=== PATIENT | female | born 1960 | race Caucasian/White ===

== ENCOUNTER 2016-10-28 18:10 | Emergency (ER) | payer OTHER ==
[~2016-10-28] VITALS: Ht 165.1 cm; Wt 76.2 kg
[~2016-10-28 18:10] MED LIST: ATENOLOL25 MG PO; CELEXA20 MG PO; CIPRO500 MG PO; CLEOCIN150 MG PO; CLINDAMYCIN HC300 MG PO; FLEXERIL5 MG PO; HYDROCODONE BIT1 T11 PO; LOMOTIL 0.025 M1 TA1 PO; Levoxyl0.137 MG PO; NAPROSYN500 MG PO; NORCO 5-325 TA1 EACH PO; PREDNISONE20 MG PO; TRAMADOL HCL50 MG PO; VICODIN 5/500 505 MG PO; ZOFRAN ODT4 MG SL
== END 2016-10-28 20:23 | disposition home or self-care (01) ==
LOC: ED 18:10
DX: R51 Headache (principal); R03.0 Elevated blood-pressure reading, without diagnosis of hypertension; Z79.899 Other long term (current) drug therapy

== ENCOUNTER → 2017-01-08 | Outpatient (CLI) | payer OTHER ==
[2017-01-08 09:51] LABS: BASO # 0.1 10*3/uL (0.0-0.1); BASO % 0.8 % (0.0-1.0); EOS # 0.7 10*3/uL (0.0-0.4); EOS % 5.6 % (1.0-4.0); HEMOGLOBIN 15.8 g/dl (12.0-16.0); LYMPH # 3.1 10*3/uL (1.3-4.4); LYMPH % 26.5 % (27.0-41.0); MEAN CELL VOLUME 94.7 fl (81.0-99.0); MEAN CORPUSCULAR HGB 33.3 pg (27.0-31.0); MEAN CORPUSCULAR HGB CONC 35.1 g/dl (33.0-37.0); MEAN PLATELET VOLUME 10.1 fl (9.6-12.3); MONO # 1.2 10*3/uL (0.1-1.0); MONO % 10.3 % (3.0-9.0); NEUT # 6.6 10*3/uL (2.3-7.9); NEUT % 56.1 % (47.0-73.0); PLATELET COUNT AUTOMATED 258 10*3/uL (130-400); RED BLOOD COUNT 4.75 10*6/uL (4.10-5.10); WHITE BLOOD COUNT 11.7 10*3/uL (4.8-10.8)
== END | disposition home or self-care (01) ==
LOC: LAB 03:22
PROVIDERS: Internal Medicine Hematology & Oncology
DX: D72.1 Eosinophilia (principal)

== ENCOUNTER → 2017-01-31 | Outpatient (CLI) | payer OTHER ==
[2017-01-31 09:40] LABS: BASO # 0.1 10*3/uL (0.0-0.1); BASO % 1.2 % (0.0-1.0); EOS # 0.8 10*3/uL (0.0-0.4); EOS % 6.7 % (1.0-4.0); HEMATOCRIT 42.2 % (37.0-47.0); HEMOGLOBIN 14.8 g/dl (12.0-16.0); LYMPH # 2.6 10*3/uL (1.3-4.4); LYMPH % 23.1 % (27.0-41.0); MEAN CELL VOLUME 92.5 fl (81.0-99.0); MEAN CORPUSCULAR HGB 32.5 pg (27.0-31.0); MEAN CORPUSCULAR HGB CONC 35.1 g/dl (33.0-37.0); MEAN PLATELET VOLUME 10.5 fl (9.6-12.3); MONO # 0.9 10*3/uL (0.1-1.0); MONO % 7.9 % (3.0-9.0); NEUT # 6.8 10*3/uL (2.3-7.9); NEUT % 60.3 % (47.0-73.0); PLATELET COUNT AUTOMATED 227 10*3/uL (130-400); RED BLOOD COUNT 4.56 10*6/uL (4.10-5.10); RED CELL DISTRI WIDTH 12.3 % (0-14.5); WHITE BLOOD COUNT 11.2 10*3/uL (4.8-10.8)
[2017-02-01 17:11] LABS: LEUKOCYTE ALK PHOSPHATASE 77 (25-130)
== END | disposition home or self-care (01) ==
LOC: LAB 03:56
PROVIDERS: Internal Medicine Hematology & Oncology
DX: D72.828 Other elevated white blood cell count (principal)

== ENCOUNTER → 2019-04-16 | Outpatient (CLI) | payer MEDICARE, MEDICAID ==
[~2019-04-16] MED LIST changes: +ASPIRIN81 M1 PO; +ATENOLOL-CHLOR1 EAC1 PO; +EMERGEN-C 500500 MG PO; +LEVOTHYROXINE125 MCG PO; +MULTIVITAMINS1 EAC5 PO; +SM COD LIVER O1 EACH PO
[2019-04-16 10:40] LABS: HEMATOCRIT 45.4 % (37.0-47.0); HEMOGLOBIN 14.8 g/dl (12.0-16.0); MEAN CORPUSCULAR HGB 30.3 pg (27.0-31.0); MEAN CORPUSCULAR HGB CONC 32.6 g/dl (33.0-37.0); MEAN PLATELET VOLUME 10.4 fl (9.6-12.3); RED BLOOD COUNT 4.88 10*6/uL (4.10-5.10); RED CELL DISTRI WIDTH 13.2 % (0-14.5)
[2019-04-16 11:14] LABS: ALBUMIN 3.3 gm/dl (3.1-4.5); ALKALINE PHOSPHATASE 129 U/L (45-117); BUN 16 mg/dl (7-24); CHLORIDE 105 mmol/L (98-107); CREATININE 0.93 mg/dL (0.55-1.02); POTASSIUM 4.3 mmol/L (3.5-5.1); SGOT/AST 7 IU/L (3-35); SGPT/ALT 13 U/L (12-78); SODIUM 140 mmol/L (136-145); TOTAL PROTEIN 6.9 gm/dL (6.4-8.2)
[2019-04-16 11:43] LABS: FREE T4 1.31 ng/dl (0.76-1.46)
== END | disposition home or self-care (01) ==
LOC: LAB 01:10
PROVIDERS: Physician Assistant
DX: R63.4 Abnormal weight loss (principal); E03.9 Hypothyroidism, unspecified; I10 Essential (primary) hypertension

== ENCOUNTER → 2019-04-17 | Outpatient (CLI) | payer MEDICARE, MEDICAID | END | disposition home or self-care (01) | LOC: CT 00:37 | DX: J43.9 Emphysema, unspecified (principal); K57.30 Diverticulosis of large intestine without perforation or abscess without bleeding; I10 Essential (primary) hypertension; F17.200 Nicotine dependence, unspecified, uncomplicated; R63.4 Abnormal weight loss; R22.0 Localized swelling, mass and lump, head; Z90.49 Acquired absence of other specified parts of digestive tract ==

== ENCOUNTER → 2019-08-07 | Outpatient (CLI) | payer OTHER, MEDICAID | END | disposition home or self-care (01) | LOC: CT 05:06 | DX: J43.9 Emphysema, unspecified (principal); R91.8 Other nonspecific abnormal finding of lung field ==

== ENCOUNTER 2020-01-29 15:48 | Inpatient (IN) | payer OTHER, MEDICAID ==
[2020-01-29] VITALS (10 sets, daily range): BP systolic 171–225; BP diastolic 71–110
[~2020-01-29] VITALS: Ht 163 cm; Wt 65.8 kg
[2020-01-29 16:40] LABS: HEMATOCRIT 48.2 % (37.0-47.0); MEAN CELL VOLUME 93.6 fl (81.0-99.0); MEAN CORPUSCULAR HGB 30.7 pg (27.0-31.0); MEAN CORPUSCULAR HGB CONC 32.8 g/dl (33.0-37.0); MEAN PLATELET VOLUME 10.4 fl (9.6-12.3); PLATELET COUNT AUTOMATED 239 10*3/uL (130-400); RED BLOOD COUNT 5.15 10*6/uL (4.10-5.10); RED CELL DISTRI WIDTH 12.4 % (0-14.5); WHITE BLOOD COUNT 12.1 10*3/uL (4.8-10.8)
[2020-01-29 16:51] LABS: ACT PARTIAL THROMBO TIME 25.5 SECONDS (20.0-32.1); INTERNATIONAL NORM RATIO 0.9 (2.0-3.5)
[2020-01-29 16:57] LABS: ALBUMIN 3.9 gm/dl (3.1-4.5); ALKALINE PHOSPHATASE 113 U/L (45-117); BUN 16 mg/dl (7-24); CHLORIDE 103 mmol/L (98-107); CREATININE 1.02 mg/dL (0.55-1.02); LIPASE 210 U/L (73-393); POTASSIUM 3.7 mmol/L (3.5-5.1); SGOT/AST 10 IU/L (3-35); SGPT/ALT 15 U/L (12-78); SODIUM 139 mmol/L (136-145); TOTAL PROTEIN 7.6 gm/dL (6.4-8.2)
[2020-01-29 16:58] LABS: TROPONIN I < 0.015 ng/ml (<0.045)
[2020-01-29 17:04] LABS: BASOPHILS 1 % (0-1); PLATELET SUFFICIENCY NORMAL (NORMAL); TOTAL CELLS COUNTED 100 #CELLS
[2020-01-29 17:07] LABS: ATYPICAL LYMPHS 1 % (0-0)
[2020-01-29 17:32] LABS: BILIRUBIN Negative (Negative); BLOOD Negative (Negative); CLARITY Clear (Clear); COLOR Yellow (Yellow); GLUCOSE Negative (Negative); KETONE Negative (Negative); LEUKO ESTERASE Negative (Negative); NITRITE Negative (Negative); SPECIFIC GRAVITY <= 1.005 (1.001-1.030); UROBILINOGEN 0.2 E.U./dl (0.0-1.0)
[2020-01-29 17:41] LABS: EPITHELIAL CELLS 0-2; WBC 0-2 wbc/hpf (0-5)
[2020-01-29] MEDS ORDERED: DALIRESP250 MCG PO (21:14)
[2020-01-29] MEDS ORDERED: 'XANAX1 MG PO (21:14)
[2020-01-29] MEDS ORDERED: BUSPIRONE HCL10 MG PO (21:16)
[2020-01-29] MEDS ORDERED: LEVOTHYROXINE112 MCG PO (21:17)
[2020-01-29] MEDS ORDERED: BREO ELLIPTA 11 EACH INH (21:18)
[2020-01-29] MEDS ORDERED: INCRUSE ELLI62.5 MCG INH (21:18)
[2020-01-29] MEDS ORDERED: ATENOLOL50 M1 PO (21:19)
[2020-01-29] MEDS ORDERED: OMEPRAZOLE40 MG PO (21:19)
[2020-01-30] VITALS: BP 168/94
[2020-01-30 06:21] LABS: BASO # 0.1 10*3/uL (0.0-0.1); BASO % 0.5 % (0.0-1.0); EOS % 0.1 % (1.0-4.0); HEMATOCRIT 52.1 % (37.0-47.0); LYMPH # 1.6 10*3/uL (1.3-4.4); LYMPH % 12.2 % (27.0-41.0); MEAN CORPUSCULAR HGB CONC 32.6 g/dl (33.0-37.0); MEAN PLATELET VOLUME 10.8 fl (9.6-12.3); MONO # 0.7 10*3/uL (0.1-1.0); MONO % 5.6 % (3.0-9.0); NEUT # 10.5 10*3/uL (2.3-7.9); NEUT % 81.1 % (47.0-73.0); PLATELET COUNT AUTOMATED 246 10*3/uL (130-400); RED BLOOD COUNT 5.66 10*6/uL (4.10-5.10); RED CELL DISTRI WIDTH 12.6 % (0-14.5); WHITE BLOOD COUNT 12.9 10*3/uL (4.8-10.8)
[2020-01-30 06:48] LABS: ALBUMIN 4.1 gm/dl (3.1-4.5); BUN 16 mg/dl (7-24); CHLORIDE 104 mmol/L (98-107); SGOT/AST 16 IU/L (3-35); SGPT/ALT 16 U/L (12-78); SODIUM 140 mmol/L (136-145)
[2020-01-30 06:50] LABS: ALKALINE PHOSPHATASE 124 U/L (45-117); CREATININE 1.01 mg/dL (0.55-1.02); TOTAL PROTEIN 8.2 gm/dL (6.4-8.2)
[2020-01-30 06:51] LABS: POTASSIUM 4.7 mmol/L (3.5-5.1)
[2020-01-30 08:00] VITALS: BP 182/92
[2020-01-30 12:00] VITALS: BP 110/83
[2020-01-30 16:00] VITALS: BP 116/80
[2020-01-30 20:00] VITALS: BP 150/74
[2020-01-31] VITALS: BP 159/75
[2020-01-31 08:00] VITALS: BP 135/77
[2020-01-31 10:16] LABS: BASO # 0.1 10*3/uL (0.0-0.1); BASO % 1.1 % (0.0-1.0); EOS # 0.6 10*3/uL (0.0-0.4); EOS % 5.2 % (1.0-4.0); HEMATOCRIT 47.1 % (37.0-47.0); LYMPH # 3.5 10*3/uL (1.3-4.4); LYMPH % 30.4 % (27.0-41.0); MEAN CELL VOLUME 92.9 fl (81.0-99.0); MEAN CORPUSCULAR HGB 30.4 pg (27.0-31.0); MEAN CORPUSCULAR HGB CONC 32.7 g/dl (33.0-37.0); MEAN PLATELET VOLUME 10.5 fl (9.6-12.3); MONO # 1.1 10*3/uL (0.1-1.0); MONO % 9.3 % (3.0-9.0); NEUT # 6.2 10*3/uL (2.3-7.9); NEUT % 53.7 % (47.0-73.0); PLATELET COUNT AUTOMATED 212 10*3/uL (130-400); RED BLOOD COUNT 5.07 10*6/uL (4.10-5.10); RED CELL DISTRI WIDTH 12.6 % (0-14.5); WHITE BLOOD COUNT 11.5 10*3/uL (4.8-10.8)
[2020-01-31] MEDS ORDERED: AMLODIPINE BESYL5 MG PO (11:54)
[2020-01-31 12:00] VITALS: BP 132/86
== END 2020-01-31 14:57 | disposition home or self-care (01) | DRG 305 ==
LOC: ED 15:48 → EDHOLD 19:32 → 4E 19:32
PROVIDERS: Internal Medicine; Nurse Practitioner Family; ADMIT Family Medicine; ATTEND Family Medicine
DX: I16.1 Hypertensive emergency (principal); R65.10 Systemic inflammatory response syndrome (SIRS) of non-infectious origin without acute organ dysfunction; E87.2 Acidosis; B37.0 Candidal stomatitis; J44.9 Chronic obstructive pulmonary disease, unspecified; F17.210 Nicotine dependence, cigarettes, uncomplicated; E03.9 Hypothyroidism, unspecified; I10 Essential (primary) hypertension; F41.9 Anxiety disorder, unspecified; N32.81 Overactive bladder; E05.00 Thyrotoxicosis with diffuse goiter without thyrotoxic crisis or storm; D75.1 Secondary polycythemia; Z71.6 Tobacco abuse counseling; Z90.49 Acquired absence of other specified parts of digestive tract; Z98.51 Tubal ligation status; Z82.3 Family history of stroke; Z80.1 Family history of malignant neoplasm of trachea, bronchus and lung; Z82.49 Family history of ischemic heart disease and other diseases of the circulatory system; Z79.82 Long term (current) use of aspirin; Z79.899 Other long term (current) drug therapy

== ENCOUNTER 2020-02-24 15:50 | Emergency (ER) | payer OTHER, MEDICAID ==
[~2020-02-24] VITALS: Wt 67.1 kg
[~2020-02-24 15:50] MED LIST changes: +'XANAX1 MG PO; +AMLODIPINE BESYL5 MG PO; +ATENOLOL50 M1 PO; +BREO ELLIPTA 11 EACH INH; +BUSPIRONE HCL10 MG PO; +DALIRESP250 MCG PO; +INCRUSE ELLI62.5 MCG INH; +LEVOTHYROXINE112 MCG PO; +OMEPRAZOLE40 MG PO
[2020-02-24 16:37] LABS: HEMATOCRIT 47.3 % (37.0-47.0); MEAN CELL VOLUME 91.8 fl (81.0-99.0); MEAN CORPUSCULAR HGB 30.9 pg (27.0-31.0); MEAN CORPUSCULAR HGB CONC 33.6 g/dl (33.0-37.0); MEAN PLATELET VOLUME 10.8 fl (9.6-12.3); PLATELET COUNT AUTOMATED 259 10*3/uL (130-400); RED BLOOD COUNT 5.15 10*6/uL (4.10-5.10); RED CELL DISTRI WIDTH 12.5 % (0-14.5); WHITE BLOOD COUNT 14.2 10*3/uL (4.8-10.8)
[2020-02-24 16:38] LABS: BILIRUBIN Negative (Negative); BLOOD Negative (Negative); CLARITY Clear (Clear); COLOR Yellow (Yellow); GLUCOSE Negative (Negative); KETONE Negative (Negative); LEUKO ESTERASE Negative (Negative); NITRITE Negative (Negative)
[2020-02-24 16:53] LABS: ALBUMIN 4.2 gm/dl (3.1-4.5); ALKALINE PHOSPHATASE 125 U/L (45-117); BUN 15 mg/dl (7-24); CHLORIDE 106 mmol/L (98-107); CREATININE 0.83 mg/dL (0.55-1.02); POTASSIUM 3.7 mmol/L (3.5-5.1); SGOT/AST 15 IU/L (3-35); SGPT/ALT 22 U/L (12-78); SODIUM 141 mmol/L (136-145); TOTAL PROTEIN 7.7 gm/dL (6.4-8.2)
[2020-02-24 16:55] LABS: BACTERIA TRACE; MUCOUS 1+
[2020-02-24 17:14] LABS: BASOPHILS 2 % (0-1); TOTAL CELLS COUNTED 100 #CELLS
[2020-02-24 17:15] LABS: BURR CELLS FEW; OVALOCYTES FEW; PLATELET SUFFICIENCY NORMAL (NORMAL)
[2020-02-24] MEDS ORDERED: FLAGYL500 MG PO ×3 (19:21→19:24)
[2020-02-24] MEDS ORDERED: CIPRO500 MG PO (19:23)
== END 2020-02-24 19:31 | disposition home or self-care (01) ==
LOC: ED 15:50
PROVIDERS: Nurse Practitioner Family
DX: K57.32 Diverticulitis of large intestine without perforation or abscess without bleeding (principal); N20.0 Calculus of kidney; Z79.899 Other long term (current) drug therapy

== ENCOUNTER 2020-03-08 17:26 | Emergency (ER) | payer OTHER, MEDICAID ==
[~2020-03-08 17:26] MED LIST changes: +FLAGYL500 MG PO
[2020-03-08 19:07] LABS: BASO # 0.1 10*3/uL (0.0-0.1); BASO % 0.7 % (0.0-1.0); EOS # 0.3 10*3/uL (0.0-0.4); EOS % 2.1 % (1.0-4.0); HEMATOCRIT 40.5 % (37.0-47.0); LYMPH # 1.9 10*3/uL (1.3-4.4); LYMPH % 13.5 % (27.0-41.0); MEAN CORPUSCULAR HGB 30.4 pg (27.0-31.0); MEAN CORPUSCULAR HGB CONC 33.8 g/dl (33.0-37.0); MEAN PLATELET VOLUME 9.7 fl (9.6-12.3); MONO # 1.3 10*3/uL (0.1-1.0); MONO % 9.3 % (3.0-9.0); NEUT # 10.2 10*3/uL (2.3-7.9); NEUT % 73.9 % (47.0-73.0); PLATELET COUNT AUTOMATED 260 10*3/uL (130-400); RED CELL DISTRI WIDTH 12.3 % (0-14.5); WHITE BLOOD COUNT 13.8 10*3/uL (4.8-10.8)
[2020-03-08 19:22] LABS: ALBUMIN 3.2 gm/dl (3.1-4.5); ALKALINE PHOSPHATASE 92 U/L (45-117); BUN 9 mg/dl (7-24); CHLORIDE 109 mmol/L (98-107); CREATININE 0.78 mg/dL (0.55-1.02); LIPASE 110 U/L (73-393); POTASSIUM 3.3 mmol/L (3.5-5.1); SGOT/AST 11 IU/L (3-35); SGPT/ALT 12 U/L (12-78); SODIUM 140 mmol/L (136-145); TOTAL PROTEIN 6.8 gm/dL (6.4-8.2)
[2020-03-08 19:22] LABS: BILIRUBIN Negative (Negative); BLOOD Negative (Negative); CLARITY Clear (Clear); COLOR Yellow (Yellow); GLUCOSE Negative (Negative); KETONE Negative (Negative); LEUKO ESTERASE Negative (Negative); NITRITE Negative (Negative); SPECIFIC GRAVITY <= 1.005 (1.001-1.030); UROBILINOGEN 0.2 E.U./dl (0.0-1.0)
[2020-03-08 19:37] LABS: BACTERIA TRACE; EPITHELIAL CELLS 0-2; RBC 0-2 rbc/hpf (0-2); WBC 0-2 wbc/hpf (0-5)
[2020-03-08] MEDS ORDERED: AUGMENTIN 875875 MG PO (23:09)
== END 2020-03-08 23:21 | disposition home or self-care (01) ==
LOC: ED 17:26
PROVIDERS: Nurse Practitioner Family
DX: K52.9 Noninfective gastroenteritis and colitis, unspecified (principal); F17.200 Nicotine dependence, unspecified, uncomplicated; Z79.82 Long term (current) use of aspirin; Z79.899 Other long term (current) drug therapy

== ENCOUNTER → 2020-03-25 | Outpatient (CLI) | payer OTHER, MEDICAID ==
[~2020-03-25] MED LIST changes: +AUGMENTIN 875875 MG PO
[2020-03-25 15:16] LABS: HEMATOCRIT 45.5 % (37.0-47.0); MEAN CELL VOLUME 93.4 fl (81.0-99.0); MEAN CORPUSCULAR HGB 31.4 pg (27.0-31.0); MEAN CORPUSCULAR HGB CONC 33.6 g/dl (33.0-37.0); MEAN PLATELET VOLUME 10.5 fl (9.6-12.3); PLATELET COUNT AUTOMATED 233 10*3/uL (130-400); RED BLOOD COUNT 4.87 10*6/uL (4.10-5.10); RED CELL DISTRI WIDTH 12.5 % (0-14.5); WHITE BLOOD COUNT 12.4 10*3/uL (4.8-10.8)
[2020-03-25 17:28] LABS: BASOPHILS 4 % (0-1); TOTAL CELLS COUNTED 100 #CELLS
[2020-03-25 17:30] LABS: PLATELET SUFFICIENCY NORMAL (NORMAL)
== END | disposition home or self-care (01) ==
LOC: LAB 14:36
PROVIDERS: ATTEND Internal Medicine Hematology & Oncology
DX: D75.1 Secondary polycythemia (principal)

== ENCOUNTER → 2020-09-15 | Outpatient (CLI) | payer OTHER, MEDICAID | END | disposition home or self-care (01) | LOC: US 00:20 | PROVIDERS: ATTEND Physician Assistant | DX: I65.23 Occlusion and stenosis of bilateral carotid arteries (principal); D75.1 Secondary polycythemia ==

== ENCOUNTER → 2020-12-01 | Outpatient (CLI) | payer OTHER, MEDICAID ==
[~2020-12-01] MED LIST changes: +LIPITOR10 MG PO; +NEXIUM 24HR20 M1 PO
[2020-12-01 09:52] VITALS: BP 144/63
== END | disposition home or self-care (01) ==
LOC: INJECTION 09:38
PROVIDERS: ATTEND Physician Assistant
DX: M81.0 Age-related osteoporosis without current pathological fracture (principal); E07.9 Disorder of thyroid, unspecified; F41.9 Anxiety disorder, unspecified; I10 Essential (primary) hypertension; F17.200 Nicotine dependence, unspecified, uncomplicated

== ENCOUNTER → 2021-06-01 | Outpatient (CLI) | payer OTHER, MEDICAID | END | disposition home or self-care (01) | LOC: INJECTION 10:00 | PROVIDERS: ATTEND Physician Assistant | DX: M81.0 Age-related osteoporosis without current pathological fracture (principal); I10 Essential (primary) hypertension; E07.9 Disorder of thyroid, unspecified; F41.9 Anxiety disorder, unspecified; G43.909 Migraine, unspecified, not intractable, without status migrainosus; Z90.49 Acquired absence of other specified parts of digestive tract; Z98.51 Tubal ligation status; Z98.890 Other specified postprocedural states ==

== ENCOUNTER → 2022-06-06 | Outpatient (CLI) | payer OTHER, MEDICAID | END | disposition home or self-care (01) | LOC: INJECTION 00:27 | PROVIDERS: ATTEND Physician Assistant | DX: M81.0 Age-related osteoporosis without current pathological fracture (principal); I10 Essential (primary) hypertension; G43.909 Migraine, unspecified, not intractable, without status migrainosus; F17.200 Nicotine dependence, unspecified, uncomplicated ==

== ENCOUNTER → 2022-12-07 | Outpatient (CLI) | payer OTHER, MEDICAID ==
[2022-12-07 10:15] VITALS: BP 114/65
== END | disposition home or self-care (01) ==
LOC: INJECTION 00:03
PROVIDERS: ATTEND Physician Assistant
DX: M81.0 Age-related osteoporosis without current pathological fracture (principal); I10 Essential (primary) hypertension; E07.9 Disorder of thyroid, unspecified; F41.9 Anxiety disorder, unspecified; G43.909 Migraine, unspecified, not intractable, without status migrainosus; Z98.51 Tubal ligation status; Z90.49 Acquired absence of other specified parts of digestive tract; Z98.890 Other specified postprocedural states

== ENCOUNTER 2023-01-13 03:26 | Inpatient (IN) | payer OTHER, MEDICAID ==
[~2023-01-13] VITALS: Ht 165.1 cm; Wt 60.8 kg
[2023-01-13 03:26] VITALS: BP 110/62
[2023-01-13 04:08] LABS: HEMATOCRIT 49.1 % (37.0-47.0); MEAN CELL VOLUME 89.1 fl (81.0-99.0); MEAN CORPUSCULAR HGB 31.2 pg (27.0-31.0); MEAN PLATELET VOLUME 10.9 fl (9.6-12.3); PLATELET COUNT AUTOMATED 305 10*3/uL (130-400); RED BLOOD COUNT 5.51 10*6/uL (4.10-5.10); RED CELL DISTRI WIDTH 12.6 % (0-14.5); WHITE BLOOD COUNT 26.7 10*3/uL (4.8-10.8)
[2023-01-13 04:10] LABS: MANUAL DIFF REFLEX YES
[2023-01-13 04:20] LABS: ACT PARTIAL THROMBO TIME 24.8 SECONDS (20.0-32.1); INTERNATIONAL NORM RATIO 1.1 (2.0-3.5)
[2023-01-13 04:29] LABS: PLATELET SUFFICIENCY NORMAL (NORMAL); TOTAL CELLS COUNTED 100 #CELLS
[2023-01-13 04:31] LABS: ALKALINE PHOSPHATASE 120 U/L (46-116); BUN 25 mg/dl (9-23); CHLORIDE 93 mmol/L (98-107); LIPASE 40 U/L (12-53); POTASSIUM 2.9 mmol/L (3.4-5.1); SGPT/ALT 11 U/L (5-49); TOTAL PROTEIN 8.6 gm/dL (6.0-8.0)
[2023-01-13 06:25] VITALS: BP 112/64
[2023-01-13 08:16] LABS: BILIRUBIN 2+ (Negative); BLOOD Trace-Lysed (Negative); CLARITY Cloudy (Clear); COLOR Dark Yellow (Yellow); GLUCOSE Negative (Negative); KETONE Trace (Negative); LEUKO ESTERASE Trace (Negative); NITRITE Negative (Negative)
[2023-01-13 08:52] LABS: BACTERIA 3+; CALCIUM OXALATE CRYSTALS 3+; EPITHELIAL CELLS 16-20; FINE GRANULAR CAST 16-20; HYALINE CAST TNTC; MUCOUS 2+; WBC 16-20 wbc/hpf (0-5)
[2023-01-13 11:07] VITALS: BP 124/62
[2023-01-13 12:00] VITALS: BP 135/55
[2023-01-13 16:00] VITALS: BP 127/52
[2023-01-13 16:03] LABS: POTASSIUM 3.1 mmol/L (3.4-5.1)
[2023-01-13 20:00] VITALS: BP 125/92
[2023-01-13] MEDS ORDERED: ZOLPIDEM TART5 MG PO (21:29)
[2023-01-14] VITALS: BP 125/67
[2023-01-14 07:16] LABS: BASO # 0.1 10*3/uL (0.0-0.1); BASO % 0.4 % (0.0-1.0); EOS # 0.4 10*3/uL (0.0-0.4); EOS % 2.8 % (1.0-4.0); HEMATOCRIT 38.8 % (37.0-47.0); LYMPH % 15.3 % (27.0-41.0); MEAN CELL VOLUME 91.7 fl (81.0-99.0); MEAN CORPUSCULAR HGB CONC 33.8 g/dl (33.0-37.0); MEAN PLATELET VOLUME 10.2 fl (9.6-12.3); MONO # 1.1 10*3/uL (0.1-1.0); MONO % 8.1 % (3.0-9.0); NEUT # 9.7 10*3/uL (2.3-7.9); NEUT % 72.6 % (47.0-73.0); RED BLOOD COUNT 4.23 10*6/uL (4.10-5.10); RED CELL DISTRI WIDTH 12.9 % (0-14.5); WHITE BLOOD COUNT 13.4 10*3/uL (4.8-10.8)
[2023-01-14 07:17] LABS: PLATELET COUNT AUTOMATED 211 10*3/uL (130-400)
[2023-01-14 07:22] LABS: ACT PARTIAL THROMBO TIME 25.1 SECONDS (20.0-32.1)
[2023-01-14 07:31] LABS: ALKALINE PHOSPHATASE 79 U/L (46-116); CHLORIDE 106 mmol/L (98-107); SGPT/ALT 15 U/L (5-49); TOTAL PROTEIN 5.8 gm/dL (6.0-8.0)
[2023-01-14 07:32] LABS: BUN 14 mg/dl (9-23)
[2023-01-14 08:00] VITALS: BP 176/66
[2023-01-14 12:00] VITALS: BP 110/63
[2023-01-14 16:00] VITALS: BP 138/56
[2023-01-14 20:00] VITALS: BP 119/89
[2023-01-15] VITALS: BP 133/61
[2023-01-15 05:59] LABS: BASO # 0.1 10*3/uL (0.0-0.1); BASO % 0.4 % (0.0-1.0); EOS # 0.5 10*3/uL (0.0-0.4); EOS % 3.7 % (1.0-4.0); HEMATOCRIT 35.5 % (37.0-47.0); LYMPH # 1.9 10*3/uL (1.3-4.4); LYMPH % 14.2 % (27.0-41.0); MEAN CELL VOLUME 94.4 fl (81.0-99.0); MEAN CORPUSCULAR HGB 31.1 pg (27.0-31.0); MEAN PLATELET VOLUME 10.5 fl (9.6-12.3); MONO # 1.2 10*3/uL (0.1-1.0); MONO % 9.2 % (3.0-9.0); NEUT # 9.5 10*3/uL (2.3-7.9); NEUT % 71.8 % (47.0-73.0); PLATELET COUNT AUTOMATED 184 10*3/uL (130-400); RED BLOOD COUNT 3.76 10*6/uL (4.10-5.10); RED CELL DISTRI WIDTH 12.9 % (0-14.5); WHITE BLOOD COUNT 13.2 10*3/uL (4.8-10.8)
[2023-01-15 06:17] LABS: BUN 8 mg/dl (9-23); CHLORIDE 109 mmol/L (98-107)
[2023-01-15 06:22] LABS: POTASSIUM 4.1 mmol/L (3.4-5.1)
[2023-01-15 08:00] VITALS: BP 128/54
[2023-01-15] MEDS ORDERED: ONDANSETRON4 MG SL (11:16)
[2023-01-15] MEDS ORDERED: AMOX-CLAV 875-1 EACH PO (11:16)
== END 2023-01-15 12:15 | disposition home or self-care (01) | DRG 871 ==
LOC: ED 03:26 → EDHOLD 09:14 → 4E 09:14
PROVIDERS: Internal Medicine; Student in an Organized Health Care Education/Training Program; ADMIT Internal Medicine; ATTEND Internal Medicine
DX: A41.9 Sepsis, unspecified organism (principal); N17.0 Acute kidney failure with tubular necrosis; N30.01 Acute cystitis with hematuria; N18.4 Chronic kidney disease, stage 4 (severe); R65.20 Severe sepsis without septic shock; F41.9 Anxiety disorder, unspecified; F17.210 Nicotine dependence, cigarettes, uncomplicated; K57.30 Diverticulosis of large intestine without perforation or abscess without bleeding; E83.42 Hypomagnesemia; E87.6 Hypokalemia; D75.1 Secondary polycythemia; R73.9 Hyperglycemia, unspecified; I12.9 Hypertensive chronic kidney disease with stage 1 through stage 4 chronic kidney disease, or unspecified chronic kidney disease; J44.9 Chronic obstructive pulmonary disease, unspecified; N32.81 Overactive bladder; E87.8 Other disorders of electrolyte and fluid balance, not elsewhere classified; E05.00 Thyrotoxicosis with diffuse goiter without thyrotoxic crisis or storm; Z98.51 Tubal ligation status; Z80.0 Family history of malignant neoplasm of digestive organs; Z82.3 Family history of stroke; Z87.11 Personal history of peptic ulcer disease; Z79.899 Other long term (current) drug therapy; Z90.49 Acquired absence of other specified parts of digestive tract; Z80.1 Family history of malignant neoplasm of trachea, bronchus and lung

== ENCOUNTER → 2023-07-10 | Outpatient (CLI) | payer OTHER, MEDICAID ==
[~2023-07-10] MED LIST changes: +AMOX-CLAV 875-1 EACH PO; +DENOSUMAB 60 MG/ML SYRINGE SC ONE; +ONDANSETRON4 MG SL; +ZOLPIDEM TART5 MG PO
[2023-07-10 10:01] VITALS: BP 115/52
== END | disposition home or self-care (01) ==
LOC: INJECTION 01:41
PROVIDERS: ATTEND Physician Assistant
DX: M81.0 Age-related osteoporosis without current pathological fracture (principal)

== ENCOUNTER → 2024-01-08 | Outpatient (CLI) | payer OTHER, MEDICAID ==
[2024-01-08 10:13] VITALS: BP 125/70
== END | disposition home or self-care (01) ==
LOC: INJECTION 10:00
PROVIDERS: ATTEND Physician Assistant
DX: M81.0 Age-related osteoporosis without current pathological fracture (principal)

== ENCOUNTER → 2024-07-08 | Outpatient (CLI) | payer OTHER, MEDICAID ==
[~2024-07-08] MED LIST changes: +HEPARIN SODIUM 500 UNIT/5 ML SYR IV SCH; +SODIUM CHLORIDE 0.9% 10 ML SYR IV PRN
[2024-07-08 10:00] VITALS: BP 114/57
== END | disposition home or self-care (01) ==
LOC: INJECTION 01:09
PROVIDERS: ATTEND Physician Assistant
DX: M81.0 Age-related osteoporosis without current pathological fracture (principal); I10 Essential (primary) hypertension; F41.9 Anxiety disorder, unspecified; E03.9 Hypothyroidism, unspecified; F17.210 Nicotine dependence, cigarettes, uncomplicated; Z90.49 Acquired absence of other specified parts of digestive tract; Z98.51 Tubal ligation status

== ENCOUNTER → 2024-12-30 | Outpatient (CLI) | payer OTHER, MEDICAID ==
[~2024-12-30] MED LIST changes: -DENOSUMAB 60 MG/ML SYRINGE SC ONE; -HEPARIN SODIUM 500 UNIT/5 ML SYR IV SCH; -SODIUM CHLORIDE 0.9% 10 ML SYR IV PRN
== END | disposition home or self-care (01) ==
LOC: RAD 03:57
PROVIDERS: ATTEND Physician Assistant
DX: M85.852 Other specified disorders of bone density and structure, left thigh (principal); M85.851 Other specified disorders of bone density and structure, right thigh; M81.0 Age-related osteoporosis without current pathological fracture

== ENCOUNTER → 2025-01-23 | Outpatient (CLI) | payer OTHER, MEDICAID ==
[~2025-01-23] MED LIST changes: +AIRSUPRA 90-810.7 GM INH; +AMLODIPINE BESY10 MG PO; +DENOSUMAB 60 MG/ML SYRINGE SC ONE; +NORVASC2.5 MG PO
[2025-01-23 11:02] VITALS: BP 129/63
== END | disposition home or self-care (01) ==
LOC: INJECTION 01:50
PROVIDERS: ATTEND Physician Assistant
DX: M81.0 Age-related osteoporosis without current pathological fracture (principal); I10 Essential (primary) hypertension; F41.9 Anxiety disorder, unspecified; E07.9 Disorder of thyroid, unspecified; G43.909 Migraine, unspecified, not intractable, without status migrainosus; Z90.49 Acquired absence of other specified parts of digestive tract; Z98.51 Tubal ligation status; Z87.891 Personal history of nicotine dependence